=== PATIENT | male | born 1980 | race Caucasian/White ===

== ENCOUNTER 2022-02-20 06:55 | Outpatient (REF) | payer OTHER, SELFPAY ==
[2022-02-20 12:03] LABS: Appearance Urine Turbid; Color Urine Yellow; Glucose Urine UA Negative (Negative); Leukocyte Esterase Urine Negative (Negative); Nitrite Urine Negative (Negative); Specific Gravity - Urine 1.025 (1.005-1.025); Urine Blood Negative (Negative); Urine Ketones Negative (Negative); Urine Protein Negative (Neg-Trace)
[2022-02-20 12:20] LABS: Alanine Aminotransferase 26 U/L (0-40); Albumin Level 4.6 g/dL (3.5-5.0); Alkaline Phosphatase 94 U/L (39-117); Anion Gap 18 (12-20); Aspartate Amino Transferase 18 U/L (5-37); Bilirubin Total 0.4 mg/dL (0.0-1.0); Blood Urea Nitrogen 14 mg/dL (9-16); Calcium 10.1 mg/dL (8.4-10.2); Carbon Dioxide 23 mmol/L (22-29); Chloride 103 mmol/L (96-108); Cholesterol 343 mg/dL; Estimated Glomerular Filt Rate > 60; Glucose Fasting 128 mg/dL (60-99); HDL Cholesterol 62 mg/dL; LDL Cholesterol Calculated 264 mg/dl; Potassium 4.6 mmol/L (3.3-5.1); Sodium 139 mmol/L (135-145); Total Protein 7.7 g/dL (6.5-8.0); Triglycerides 88 mg/dL
[2022-02-20 12:46] LABS: TSH reflex Free T4 2.43 uIU/mL (0.32-4.0)
== END 2022-02-20 06:56 | disposition home or self-care (01) ==
LOC: HO.HMGCLDS 06:55
PROVIDERS: PCP Nurse Practitioner Family; Visit Provider Nurse Practitioner Family
DX: Z00.00 Encounter for general adult medical examination without abnormal findings (principal)
CPT/HCPCS: 36415; 80053; 80061; 81003; 84443

== ENCOUNTER 2022-05-30 06:43 | Outpatient (REF) | payer OTHER, SELFPAY ==
[2022-05-30 11:59] LABS: Alanine Aminotransferase 18 U/L (0-40); Albumin Level 4.5 g/dL (3.5-5.0); Alkaline Phosphatase 77 U/L (39-117); Anion Gap 13 (12-20); Aspartate Amino Transferase 13 U/L (5-37); Bilirubin Total 0.8 mg/dL (0.0-1.0); Blood Urea Nitrogen 15 mg/dL (9-16); Calcium 9.7 mg/dL (8.4-10.2); Carbon Dioxide 26 mmol/L (22-29); Chloride 107 mmol/L (96-108); Estimated Glomerular Filt Rate > 60; Glucose Fasting 90 mg/dL (60-99); Sodium 142 mmol/L (135-145); Total Protein 7.1 g/dL (6.5-8.0)
== END 2022-05-30 06:44 | disposition home or self-care (01) ==
LOC: HO.HMGCLDS 06:43
PROVIDERS: PCP Nurse Practitioner Family; Visit Provider Nurse Practitioner Family
DX: R73.01 Impaired fasting glucose (principal)
CPT/HCPCS: 36415; 80053

== ENCOUNTER 2023-02-24 13:13 | Outpatient (AMB) | payer OTHER, SELFPAY ==
[2023-02-24 15:35] VITALS: BP 120/78; PULSE 74; TEMP 36.6; O2SAT 98; BMI 30.9
--- NOTE | 2023-02-24 15:35 | AM.OFFWIN_ITS ---
Intake Vital Signs 02/24/23 15:35 Height 6 ft Weight 228 lb BMI 30.9 BP 120/78 Blood Pressure Location Lt brachial Position Sitting Pulse 74 Pulse Source Pulse Oximeter Temp 97.8 F Temp Source Temporal Artery Scan Pulse Oximetry (%) 98 Oxygen Delivery Method Room Air Intake Visit Reasons: EST/rash ongoing/[phone] Intake Note: pt is here for c/o rash ongoing on arms Patient Tobacco Use Status: Never used Tobacco Allergies No Known Allergies Allergy (Verified 02/24/23 16:21) Medication List - Last Reconciled 02/24/23 by Cristofer Biggs MD No Known Home Meds Do you need a note to return to daycare/school/sports/work: Yes HPI EST/rash ongoing/[phone] HPI Details 42-year-old male presents to the office for a sick visit. Patient reports that his rash has reoccurred in the past month. He has new lesions in the front of the right elbow, on the right side of his back, right lower abdomen and in the legs. There is thickened skin. FOR[facility]LY [facility], [facility] Social History Housing: House Patient Tobacco Use Status: Never used Tobacco e-Cigarette/Vaping Use: Never Used Second Hand Smoke Exposure: No service: No Current occupational status: employed Current occupation: [employer] Current occupational exposures/hazards: No Cognitive needs: No Hearing needs: No Vision needs: No Physical Exam Vital Signs: Last Vital Signs Temp 97.8 F 02/24/23 15:35 Pulse 74 02/24/23 15:35 BP 120/78 02/24/23 15:35 Pulse Ox 98 02/24/23 15:35 Oxygen Delivery Method Room Air 02/24/23 15:35 BMI result Body Mass Index 30.9 Skin Other: Antecubital fossa: Right: Thickened skin with a rash. No vesicles or pustules. Similar rash right over the right hip, middle of the back. Assessment & Plan Assessment & Plan (1) Dermatitis: Code(s): L30.9 - Dermatitis, unspecified Plan: Patient has eczematous dermatitis which is periodically recurring. Prednisone and hydrocortisone cream has been prescribed. However patient needs an appointment with the senior counsel for a biopsy confirmation. Coding Level of Care Code Est Pt Level 3 (94210) Diagnoses Dermatitis L30.9
== END 2023-02-24 16:36 | disposition home or self-care (01) ==
PROVIDERS: PCP Nurse Practitioner Family; Visit Provider Internal Medicine
DX: L30.9 Dermatitis, unspecified (principal)
CPT/HCPCS: 99213

== ENCOUNTER 2023-06-25 10:23 | Outpatient (AMB) | payer OTHER, SELFPAY ==
--- NOTE | 2023-06-25 10:34 | A.OFFPC_ITS ---
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 PFSH Surgical History Hx of appendectomy Social History Housing: House Patient Tobacco Use Status: Never used Tobacco e-Cigarette/Vaping Use: Never Used Second Hand Smoke Exposure: No service: No Current occupational status: employed Current occupation: [employer] Current occupational exposures/hazards: No Cognitive needs: No Hearing needs: No Vision needs: No Questionnaire PHQ-9 Over the last 2 weeks, how often have you been bothered by any of the following problems? 1. Little interest or pleasure in doing things: not at all 2. Feeling down, depressed, or hopeless: not at all 3. Trouble falling or staying asleep, or sleeping too much: not at all 4. Feeling tired or having little energy: not at all 5. Poor appetite or overeating: not at all 6. Feeling bad about yourself - or that you are a failure or have let yourself or your family down: not at all 7. Trouble concentrating on things, such as reading the newspaper or watching television: not at all 8. Moving or speaking so slowly that other people could have noticed. Or the opposite - being so fidgety or restless that you have been moving around a lot more than usual: not at all 9. Thoughts that you would be better off or of hurting yourself in some way: not at all Total score: 0 Depression Screening Interpretation: Negative Depression Screening Done: Yes 32307 - PHQ-9 Billing: Yes Source: Developed by Drs. Radu Montesinos, Ene Legegtt, Cal Travis and colleagues, with an educational kylie from [employer]. Thrive Questionnaire Date Thrive assessed: 06/25/23 I am a: Patient What is your living situation today?: I have a steady place to live Within the past 12 months, did the food you bought not last and you didn't have the money to get more?: Never true Within the past 12 months, did you worry whether your food would run out before you got money to buy more?: Never true Do you have trouble paying for medicines?: No Do you have trouble getting transportation to medical appointments?: No Do you have trouble paying your heating and electricity bill?: No Do you have trouble taking care of your child, family member or friend?: No Do you have trouble with day-to-day activities such as bathing, preparing meals, shopping, managing finances, etc.?: No Are you currently unemployed and looking for a job?: No Are you interested in more education?: No Please select the resources that you would like help with: None Currently or been in a relationship where the following occur: no concerns reported THRIVE Score: 0 AUDIT C Alcohol Use Questionnaire (AUDIT-C) 1. How often do you have a drink containing alcohol?: 2-4 times a month 2. How many drinks containing alcohol do you have on a typical day when you are drinking?: 1 or 2 3. How often do you have six or more drinks on one occasion?: Never Total Score: 2 Score Reviewed/Action Taken: Yes JACKIE-7 AMB Questionnaire JACKIE-7 Date JACKIE - 7 assessed: 06/25/23 Feeling nervous, anxious, or on edge: 0 = Not at all Not being able to stop or control worryin = Not at all Worrying too much about different things: 0 = Not at all Trouble relaxin = Not at all Being so restless that it is hard to sit still: 0 = Not at all Becoming easily annoyed or irritable: 0 = Not at all Feeling afraid as if something awful might happen: 0 = Not at all Total JACKIE-7 score (0-4 normal; 5-9 mild; 10-14 moderate; 15-21 severe): 0 Source: Developed by Drs. Radu Montesinos, Ene Leggett, Cal Travis and colleagues, with an educational kylie from [employer]. JACKIE-7 Assessment Billing JACKIE-7 Assessment Tool: JACKIE-7 Assessment 95523 Review of Systems Const Denies chills and Denies fever(s) Eyes Denies blurry vision ENT Denies vertigo, Denies dizziness and Denies sore throat Card Denies chest pain at rest, Denies chest pain with activity, Denies diaphoresis, Denies dyspnea and Denies dyspnea on exertion Resp Denies cough, Denies dyspnea, Denies dyspnea on exertion and Denies wheezing GI Denies abdominal pain, Denies melena, Denies hematochezia, Denies constipation, Denies diarrhea and Denies loose stools Denies hematuria Musc Denies numbness and Denies tingling Skin/Breast Denies lesions Neuro Denies vertigo, Denies dizziness, Denies numbness and Denies tingling Psych Denies anxiety, Denies depression, Denies homicidal ideation, Denies suicidal ideation and Denies other (substance abuse) Aller/Immun Denies wheezing Physical exam (Primary Care) Vital Signs: Last Vital Signs Pulse 80 06/25/23 10:35 BP 120/74 06/25/23 10:35 Pulse Ox 98 06/25/23 10:35 Oxygen Delivery Method Room Air 06/25/23 10:35 BMI result Body Mass Index 30.8 Tobacco/Smoking Status: Tobacco use Status Tobacco use date assessed 06/25/23 06/25/23 10:36 Patient Tobacco Use Status Never used Tobacco 06/25/23 10:36 e-Cigarette/Vaping Use Never Used 06/25/23 10:36 PHQ-9: PHQ-9 Score PHQ-9: Total score 0 06/25/23 11:09 Depression Screening Interpretation: Negative Thrive Assessment: Date of Thrive Assessment Date Thrive assessed 06/25/23 06/25/23 10:53 Currently or been in a relationship where the following occur: no concerns reported Const General: cooperative Nutritional Appearance: well nourished Orientation/consciousness: patient oriented x3 HENMT Head: Yes normal to inspection, Yes normocephalic and Yes atraumatic Ears: TM normal on the right and TM normal on the left Eyes General: appearance normal, both eyes and all related structures Alignment and Position: alignment normal and position normal Neck Other: ? enlarged thyroid Neck: Yes no lymphadenopathy Resp Effort & Inspection: normal respiratory effort Auscultation: clear to auscultation bilaterally Cardio Rate: regular rate Rhythm: regular rhythm Heart sounds: S1 normal heart sound present, S2 normal heart sound present and no murmurs GI Palpation (GI): Soft to palpation and nontender Auscultation: normal bowel sounds Male General Exam: Yes normal external exam Penis: normal penis Scrotum: scrotum normal, testes descended bilaterally and no inguinal hernias Testes: no testicular mass Skin Rashes: no rashes Neuro General: patient oriented x3, moves all extremities, no focal motor deficits and deep tendon reflexes 2+ bilaterally Romberg Test: Negative Extrem Right lower extremity: no edema Left lower extremity: no edema Psych Affect: normal affect Attitude: cooperative Thought process: Normal thought process present Assessment and Plan Assessment & Plan (1) Physical exam: Code(s): Z00.00 - Encounter for general adult medical examination without abnormal findings Plan: labs ordered (2) Enlarged thyroid: Code(s): E04.9 - Nontoxic goiter, unspecified Plan: US ordered Orders: Orders TSH reflex Free T4 Today Z00.00 - Encounter for general adult medical examination without abnormal findings Complete Blood Count Auto Diff Today Z00.00 - Encounter for general adult medical examination without abnormal findings Comprehensive [place]. Panel Fast Today Z00.00 - Encounter for general adult medical examination without abnormal findings UA CC w/rflx Micro + Cult Today Z00.00 - Encounter for general adult medical examination without abnormal findings Lipid Panel Today Z00.00 - Encounter for general adult medical examination without abnormal findings US thyroid Today E04.9 - Nontoxic goiter, unspecified Medications: New clotrimazole-betamethasone 1-0.05 % 1 appl topical BID 45 grams 2RF Discontinued triamcinolone acetonide 0.025% Discontinued Reason: Doctor's Order 1 appl topical BID 15 grams 0RF Coding Level of Care Code Est Pt Prev Care 40-64y(64676) Diagnoses Physical exam Z00.00 Enlarged thyroid E04.9 Additional Codes JACKIE-7 Assessment Billing - JACKIE-7 Assessment Tool: JACKIE-7 Assessment 40523 ([id number])
[2023-06-25 10:35] VITALS: BP 120/74; PULSE 80; O2SAT 98; BMI 30.8
== END 2023-06-25 11:24 | disposition home or self-care (01) ==
PROVIDERS: Visit Provider Nurse Practitioner Family
DX: Z00.00 Encounter for general adult medical examination without abnormal findings (principal); E04.9 Nontoxic goiter, unspecified
CPT/HCPCS: 99396

== ENCOUNTER 2024-07-26 08:03 | Outpatient (AMB) | payer OTHER, SELFPAY ==
[2024-07-26 08:08] VITALS: BP 118/74; PULSE 82; O2SAT 98; BMI 31.1
--- NOTE | 2024-07-26 08:08 | A.OFFPC_ITS ---
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 Accompanied by: Self / Same As Patient Allergies No Known Allergies Allergy (Verified 07/26/24 08:26) Medication List - Last Reconciled 07/26/24 by OUMAR Hoang clotrimazole-betamethasone 1-0.05 % 1 appl topical BID Tobacco use date assessed: 07/26/24 Dental Screening Dental Screen Date: 07/26/24 Did you have a dental visit in the last 12 months?: Yes Did you have a dental problem in the last 6 months where you did not have access to dental care?: No Was dental information given to patient?: Patient has dentist PENDING SALE TO [facility] Surgical History Hx of appendectomy Social History Housing: House Patient Tobacco Use Status: Never used Tobacco e-Cigarette/Vaping Use: Never Used Second Hand Smoke Exposure: No service: No Current occupational status: employed Current occupation: [employer] Current occupational exposures/hazards: No Cognitive needs: No Hearing needs: No Vision needs: No Questionnaire PHQ-9 Over the last 2 weeks, how often have you been bothered by any of the following problems? 1. Little interest or pleasure in doing things: not at all 2. Feeling down, depressed, or hopeless: not at all 3. Trouble falling or staying asleep, or sleeping too much: not at all 4. Feeling tired or having little energy: not at all 5. Poor appetite or overeating: not at all 6. Feeling bad about yourself - or that you are a failure or have let yourself or your family down: not at all 7. Trouble concentrating on things, such as reading the newspaper or watching television: not at all 8. Moving or speaking so slowly that other people could have noticed. Or the opposite - being so fidgety or restless that you have been moving around a lot more than usual: not at all 9. Thoughts that you would be better off or of hurting yourself in some w ay: not at all Total score: 0 Depression Screening Interpretation: Negative Depression Screening Done: Yes 25766 - PHQ-9 Billing: Yes Source: Developed by Drs. Radu Montesinos, Ene Leggett, Cal Travis and colleagues, with an educational kylie from [employer]. Thrive Questionnaire Date Thrive assessed: 07/26/24 I am a: Patient What is your living situation today?: I have a steady place to live Within the past 12 months, did the food you bought not last and you didn't have the money to get more?: Never true Within the past 12 months, did you worry whether your food would run out before you got money to buy more?: Never true Do you have trouble paying for medicines?: No Do you have trouble getting transportation to medical appointments?: No Do you have trouble paying your heating and electricity bill?: No Do you have trouble taking care of your child, family member or friend?: No Do you have trouble with day-to-day activities such as bathing, preparing meals, shopping, managing finances, etc.?: No Are you currently unemployed and looking for a job?: Yes Are you interested in more education?: No Please select the resources that you would like help with: None Currently or been in a relationship where the following occur: No concerns reported THRIVE Score: 0 AUDIT C Alcohol Use Questionnaire (AUDIT-C) 1. How often do you have a drink containing alcohol?: Monthly or less 2. How many drinks containing alcohol do you have on a typical day when you are drinking?: 1 or 2 3. How often do you have six or more drinks on one occasion?: Less than monthly Total Score: 2 Score Reviewed/Action Taken: Yes JACKIE-7 AMB Questionnaire JACKIE-7 Date JACKIE - 7 assessed: 07/26/24 Feeling nervous, anxious, or on edge: 0 = Not at all Not being able to stop or control worryin = Not at all Worrying too much about different things: 0 = Not at all Trouble relaxin = Not at all Being so restless that it is hard to sit still: 0 = Not at all Becoming easily annoyed or irritable: 0 = Not at all Feeling afraid as if something awful might happen: 0 = Not at all Total JACKIE-7 score (0-4 normal; 5-9 mild; 10-14 moderate; 15-21 severe): 0 Source: Developed by Drs. Radu Montesinos, Ene Leggett, Cal Travis and colleagues, with an educational kylie from [employer]. JACKIE-7 Assessment Billing JACKIE-7 Assessment Tool: JACKIE-7 Assessment 74976 Physical exam (Primary Care) Vital Signs: Last Vital Signs Pulse 82 07/26/24 08:08 BP 118/74 07/26/24 08:08 Pulse Ox 98 07/26/24 08:08 Oxygen Delivery Method Room Air 07/26/24 08:08 BMI result Body Mass Index 31.1 Tobacco/Smoking Status: Tobacco use Status Tobacco use date assessed 07/26/24 07/26/24 08:09 Patient Tobacco Use Status Never used Tobacco 07/26/24 08:09 e-Cigarette/Vaping Use Never Used 07/26/24 08:09 PHQ-9: PHQ-9 Score PHQ-9: Total score 0 07/26/24 08:09 Depression Screening Interpretation: Negative Thrive Assessment: Date of Thrive Assessment Date Thrive assessed 07/26/24 07/26/24 08:09 Currently or been in a relationship where the following occur: No concerns reported Coding Level of Care Code Est Pt Prev Care 40-64y(60137) Diagnoses Physical exam Z00. Enlarged thyroid E04.9 Additional Codes JACKIE-7 Assessment Billing - JACKIE-7 Assessment Tool: JACKIE-7 Assessment 62041 ([id number]) PHQ-9 - 67726 - PHQ-9 Billing: Yes ([id number]) Assessment & Plan Assessment & Plan (1) Physical exam: Code(s): Z00.00 - Encounter for general adult medical examination without abnormal findings Category: Medical (2) Enlarged thyroid: Code(s): E04.9 - Nontoxic goiter, unspecified Category: Medical Plan . Orders: Orders 2 Complete Blood Count Auto Diff Today Z00.00 - Encounter for general adult medical examination without abnormal findings Comprehensive [place]. Panel Fast Today Z00.00 - Encounter for general adult medical examination without abnormal findings TSH reflex Free T4 Today Z00.00 - Encounter for general adult medical examinat ion without abnormal findings UA CC w/rflx Micro + Cult Today Z00.00 - Encounter for general adult medical examination without abnormal findings Lipid Panel Today Z00.00 - Encounter for general adult medical examination without abnormal findings US thyroid Today E04.9 - Nontoxic goiter, unspecified
== END 2024-07-26 08:33 | disposition home or self-care (01) ==
LOC: HO.HMCC 08:03
PROVIDERS: PCP Nurse Practitioner Family; Visit Provider Nurse Practitioner Family
DX: Z00.00 Encounter for general adult medical examination without abnormal findings (principal); E04.9 Nontoxic goiter, unspecified

== ENCOUNTER → 2024-07-26 08:03 | Outpatient (BNVA) | payer OTHER, SELFPAY | PROVIDERS: PCP Nurse Practitioner Family; Visit Provider Nurse Practitioner Family | DX: Z00.00 Encounter for general adult medical examination without abnormal findings (principal); E04.9 Nontoxic goiter, unspecified | CPT/HCPCS: 96127 ==

== ENCOUNTER 2024-08-16 14:28 | Outpatient (REF) | payer OTHER, SELFPAY ==
--- NOTE | ~2024-08-16 | US_ITS ---
EXAMINATION: US THYROID HISTORY: E04.9 - Nontoxic goiter, unspecified TECHNIQUE: Real-time grayscale ultrasound imaging was performed and images were reviewed. COMPARISON: There are no prior studies for comparison. FINDINGS: SIZE: The right thyroid lobe measures 4.8 x 1.6 x 2.1 cm. The left thyroid lobe measures 4.6 x 1.4 x 2.1 cm. The isthmus measures 3 mm. FLOW: Flow to the gland is increased. ECHOGENICITY: The echotexture of the gland is homogeneous. NODULES: No discrete nodules are identified. US/US thyroid IMPRESSION: Hypervascular thyroid gland. Otherwise unremarkable thyroid ultrasound. No discrete nodules are identified. ACR TI-RADS Guidelines TR1 (0 points): Benign, No follow-up or biopsy required TR2 (2 points): Not Suspicious, No biopsy or follow up indicated TR3 (3 points): Mildly Suspicious, FNA if >= 2.5 cm, Follow if >= 1.5 cm TR4 (4-6 points): Moderately Suspicious, FNA if >= 1.5 cm, Follow if >= 1.0 cm TR5 (>=7 points): Highly Suspicious, FNA if >= 1.0 cm, Follow if >= 0.5 cm Electronically signed by: Radu Gale MD 08/18/2024 12:20 PM EDT
== END 2024-08-16 14:29 | disposition home or self-care (01) ==
LOC: HO.HMGCX 14:28
PROVIDERS: PCP Nurse Practitioner Family; Visit Provider Nurse Practitioner Family
DX: E04.9 Nontoxic goiter, unspecified (principal)
CPT/HCPCS: 76536

== ENCOUNTER → 2024-08-16 14:34 | Outpatient (BNV) | payer OTHER, SELFPAY | PROVIDERS: PCP Nurse Practitioner Family; Visit Provider Radiology Diagnostic Radiology | DX: E07.9 Disorder of thyroid, unspecified (principal) | CPT/HCPCS: 76536 ==

== ENCOUNTER 2025-03-01 08:13 | Outpatient (AMB) | payer OTHER, SELFPAY ==
[2025-03-01 08:33] VITALS: BP 104/78; PULSE 68; O2SAT 97; BMI 29.8
--- NOTE | 2025-03-01 08:33 | MHC.OFFWIV ---
Intake Vital Signs 03/01/25 08:33 Height 6 ft Weight 220 lb BMI 29.8 BP 104/78 Blood Pressure Location Rt brachial Position Sitting Pulse 68 Pulse Source Pulse Oximeter Pulse Oximetry (%) 97 Oxygen Delivery Method Room Air Intake Visit Reasons: EP-lower groin pain Intake Note: Patient presents with c/o left groin pain x4 days - patient did self exam at home and felt a bump in left groin that has gotten bigger since Friday. Patient Tobacco Use Status: Never used Tobacco Allergies No Known Allergies Allergy (Verified 03/01/25 08:40) Do you need a note to return to daycare/school/sports/work: No HPI HPI Comments History of Present Illness Details History of Present Illness - The patient is a 44-year-old male presenting with left groin pain and a palpable lump. - The patient reports left groin pain that started four days ago, accompanied by a palpable lump that has increased in size. - The pain is described as a dull ache, with slight tenderness upon palpation. - The patient denies fever, nausea, vomiting, diarrhea, constipation, and any abnormal penile discharge. - The lump has progressively increased in size over the past four days. - No interventions have been attempted prior to this visit. - The patient reports no history of heavy lifting or recent trauma. - Denies left hip pain Review of Systems - General: Denies fever. - Gastrointestinal: Denies nausea, vomiting, diarrhea, constipation. - Genitourinary: Reports left groin pain and palpable lump; denies abnormal discharge and STIs. All systems reviewed and are unremarkable except as noted in HPI Physical Exam General: Cooperative, healthy appearing, comfortable, no acute distress and well developed Orientation: Patient oriented x3 Limitations: No limitations Head: Normal to inspection Ears: Hearing grossly normal bilaterally Nose: Normal External nose present Face and sinus: Normal facial exam Eyes: Appearance normal, both eyes and all related structures Neck: Normal visual inspection and Yes full ROM Respiratory: Normal respiratory effort and able to speak in complete sentences. : no blue dot sign, TTP 0.5cm round lump left testicle. 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 [facility] Surgical History Hx of appendectomy Social History Housing: House Patient Tobacco Use Status: Never used Tobacco e-Cigarette/Vaping Use: Never Used Second Hand Smoke Exposure: No service: No Current occupational status: employed Current occupation: [employer] Current occupational exposures/hazards: No Cognitive needs: No Hearing needs: No Vision needs: No Physical Exam Vital Signs: Last Vital Signs Pulse 68 03/01/25 08:33 BP 104/78 03/01/25 08:33 Pulse Ox 97 03/01/25 08:33 Oxygen Delivery Method Room Air 03/01/25 08:33 BMI result Body Mass Index 29.8 Assessment & Plan Assessment & Plan (1) Left testicular pain: Code(s): N50.812 - Left testicular pain Plan: Plan Patient was informed and verbally consented to the use of an ambient scribe for clinic note documentation during this visit. - An ultrasound of the testicles is ordered to rule out torsion and identify source of the lump palpated, appt at 11am today. - If the pain becomes severe, the patient is advised to visit the emergency room. Orders: Orders US scrotum doppler Today N50.812 - Left testicular pain Coding Level of Care Code Est Pt Level 3 (79793) Diagnoses Left testicular pain N50.812
== END 2025-03-01 09:01 | disposition home or self-care (01) ==
PROVIDERS: PCP Nurse Practitioner Family; Visit Provider Physician Assistant
DX: N50.812 Left testicular pain (principal)

== ENCOUNTER 2025-03-01 10:57 | Outpatient (REF) | payer OTHER, SELFPAY ==
--- NOTE | ~2025-03-01 | US_ITS ---
EXAMINATION: US SCROTUM CLINICAL INFORMATION: Testicular pain, left side.. COMPARISON: None available. TECHNIQUE: A sonogram of the scrotum was performed assessing hill-scale appearance and color Doppler flow. Spectral Doppler analysis of the arterial and venous flow were performed in the testes bilaterally. FINDINGS: RIGHT: Right testicle measures 4.3 x 2.3 x 3.4 cm, volume 17 mL. Normal echotexture. No solid or cystic lesion. Spectral Doppler analysis of the arterial and venous flow is normal in the right testis. Right epididymal head is normal . No free fluid in the scrotal sac. Right epididymal Doppler flow is normal. LEFT: Left testicle measures 4.1 x 2.1 x 3.0 cm, volume 13 mL. No solid lesion. Spectral Doppler analysis of the arterial and venous flow is normal in the left testis. Normal pampiniform plexus. Left epididymal head is normal . No free fluid in the scrotal sac. Prominent of the pampiniform plexus.. Left epididymal Doppler flow is normal. US/US scrotum doppler IMPRESSION: Varicocele, left-sided. No testicular torsion. No testicular mass. Electronically signed by: Greg Chacko MD 03/01/2025 11:32 AM EST
--- NOTE | ~2025-03-01 | US_ITS ---
EXAMINATION: US SCROTUM CLINICAL INFORMATION: Testicular pain, left side.. COMPARISON: None available. TECHNIQUE: A sonogram of the scrotum was performed assessing hill-scale appearance and color Doppler flow. Spectral Doppler analysis of the arterial and venous flow were performed in the testes bilaterally. FINDINGS: RIGHT: Right testicle measures 4.3 x 2.3 x 3.4 cm, volume 17 mL. Normal echotexture. No solid or cystic lesion. Spectral Doppler analysis of the arterial and venous flow is normal in the right testis. Right epididymal head is normal . No free fluid in the scrotal sac. Right epididymal Doppler flow is normal. LEFT: Left testicle measures 4.1 x 2.1 x 3.0 cm, volume 13 mL. No solid lesion. Spectral Doppler analysis of the arterial and venous flow is normal in the left testis. Normal pampiniform plexus. Left epididymal head is normal . No free fluid in the scrotal sac. Prominent of the pampiniform plexus.. Left epididymal Doppler flow is normal. US/US scrotum IMPRESSION: Varicocele, left-sided. No testicular torsion. No testicular mass. Electronically signed by: Greg Chacko MD 03/01/2025 11:32 AM EST
[2025-03-01 14:34] LABS: CT PCR Urine NOT DETECTED (Not Detect.); NG PCR Urine NOT DETECTED (Not Detect.)
== END 2025-03-01 10:58 | disposition home or self-care (01) ==
LOC: HO.HMGCX 10:57
PROVIDERS: PCP Nurse Practitioner Family; Visit Provider Physician Assistant
DX: N50.812 Left testicular pain (principal); Z20.2 Contact with and (suspected) exposure to infections with a predominantly sexual mode of transmission
CPT/HCPCS: 76870; 87491; 87591; 93975

== ENCOUNTER → 2025-03-01 10:59 | Outpatient (BNV) | payer OTHER, SELFPAY | PROVIDERS: PCP Nurse Practitioner Family; Visit Provider Radiology Diagnostic Radiology | DX: N50.812 Left testicular pain (principal) | CPT/HCPCS: 76870; 93975 ==

== ENCOUNTER 2025-04-07 13:40 | Outpatient (AMB) | payer OTHER, SELFPAY ==
--- NOTE | 2025-04-07 13:50 | MHC.OFFVIS ---
Intake Visit Reasons: Varicocele with pain SET [facility]A Intake Note: Reason for Visit: New Patient Varicocele/Pain Urology Meds: None Blood Thinners: None Antibiotic Allergy: None Labs: None Imaging: Scrotum US 03/01/25 Last PVR: None Family History: Prostate Cancer? no Bladder Cancer? no Kidney Cancer? no Previous Urology? no Resin Coater Required: No Accompanied by: Self / Same As Patient Allergies No Known Allergies Allergy (Verified 04/07/25 13:54) HPI Comments Details: Efrem is a pleasant male. He is a patient of Dr. Cali. He seen for the following urologic conditions - varicocele Describes pain as more discomfort Had been more concerned about small lump he thought he felt on back of left testicle Varicocele with pain Left-sided varicocele on ultrasound On exam has grade 3 varicocele left side no other issue No hernia Left testicle smaller than right Reassurance provided [facility] Medical History (Updated 03/01/25 @ 11:51 by Cyndie Chairez PA-C) Left varicocele Surgical History Hx of appendectomy Social History Housing: House Patient Tobacco Use Status: Never used Tobacco e-Cigarette/Vaping Use: Never Used Second Hand Smoke Exposure: No service: No Current occupational status: employed Current occupation: [employer] Current occupational exposures/hazards: No Cognitive needs: No Hearing needs: No Vision needs: No Review of Systems Const Denies chills and Denies fever(s) Card Reports no additional complaints and Denies syncope Resp Denies cough GI Denies abdominal pain and Denies heartburn Reports as per HPI and Denies change in libido Neuro Denies syncope Psych Denies change in libido Endo Denies change in libido Physical Exam Const General: cooperative, healthy appearing, comfortable and no acute distress Orientation/consciousness: patient oriented x3 HEENT Face and sinus: Yes normal facial exam Mouth: moist mucous membranes Neck Neck: Yes normal visual inspection, Yes full ROM and Yes trachea midline Chest Chest palpation & inspection: normal inspection of the chest Resp Effort & Inspection: normal respiratory effort, able to speak in complete sentences and no respiratory distress GI Inspection: Yes normal to inspection Back/Spine/Pelvis Cervical Spine: normal cervical lordosis Thoracic/Lumbar Spine: thoracic and lumbar spine normal to inspection Skin General skin exam: no rashes or lesions noted Neuro General: patient oriented x3, gait normal, tone normal and moves all extremities Extrem General: Yes normal to inspection and Yes capillary refill normal Assessment & Plan Assessment & Plan (1) Left varicocele: Code(s): I86.1 - Scrotal varices Category: Medical (2) Left testicular pain: Code(s): N50.812 - Left testicular pain Category: Medical Plan P.r.n. Patient Instructions: This note is constructed using voice recognition software. While every effort has been made to ensure accuracy log handling equipment operator errors may have been included. Imaging studies, laboratory and physical exam results were discussed and reviewed in detail. No major barriers to patient understanding were identified. An opportunity to ask questions regarding the treatment plan was provided. All questions were answered. The patient expressed understanding and agreement with the above treatment plan. The patient is aware they should contact our office by phone for worsening of their current condition or the appearance of new urologic symptoms. Compliance is encouraged with any medications and followup testing that is ordered. It is a privilege to participate in the urologic care of your patient. If you have any questions or concerns regarding treatment for the above conditions, or other urologic issues, please do not hesitate to contact me. The office telephone contact is [phone]. Sincerely, Dr Víctor Pena MD, [facility] - Urology Compassionate Specialist Care for the Genitourinary System Coding Level of Care Code New Pt Level 3 (39896) Diagnoses Left varicocele I86.1 Left testicular pain N50.812
== END 2025-04-07 14:16 | disposition home or self-care (01) ==
LOC: HO.HUSH 13:41
PROVIDERS: PCP Nurse Practitioner Family; Visit Provider Urology
DX: I86.1 Scrotal varices (principal); N50.812 Left testicular pain
CPT/HCPCS: 99203